=== PATIENT | female | born 1960 | race African-American/Black ===

== ENCOUNTER 2022-06-29 21:26 | Emergency (ER) | payer MEDICARE, MEDICAID, SELFPAY ==
--- NOTE | ~2022-06-29 | CT_ITS ---
EXAMINATION: CTA brain DATE: 06/30/2022 02:24 INDICATION: Dizziness. TECHNIQUE: Computed tomographic angiography (CTA) of the head was performed with 100 mL Omnipaque-350 intravenous contrast. Automated exposure control and iterative reconstruction technique were employe d. The dose-length product was 488.90 mGy-cm. Maximum intensity projection 3D reconstructions were c reated. Volume-rendered 3D reconstructions of the intracranial arteries were created by the technolog ist on a separate workstation. COMPARISON: Head CT 06/30/2022 FINDINGS: There is no intracranial hemorrhage, acute infarction, or abnormal intracranial mass lesion . The ventricles are normal in size. The orbits are normal. The mastoid air cells are normal. The par anasal sinuses are clear. The vertebral arteries are codominant. There is no significant stenosis of basilar artery or the posterior cerebral arteries. The posterior communicating arteries are normal. T here is no significant stenosis of the intracranial internal carotid arteries or anterior or middle c erebral arteries. Anterior communicating artery is normal. There is no aneurysm. IMPRESSION: 1. Normal brain. 2. No aneurysm or significant intracranial arterial stenosis. Reviewed, dictated and finalized at location A. NESS OFFICE SPECIALIST
--- NOTE | ~2022-06-29 | CT_ITS ---
EXAMINATION: CT brain wo con INDICATION: Dizziness and headache COMPARISON: None TECHNIQUE: Standard unenhanced head CT. The dose-length product (DLP) was 605.33 mGy-cm. The mA was a djusted according to patient size. Iterative reconstruction technique was employed. FINDINGS: There is no intracranial hemorrhage, acute infarction, or abnormal mass lesion. The ventric les are normal. There is no abnormal mass effect or midline shift. The daiz-white matter differentiat ion is normal. The basal cisterns are patent. The orbits are normal. The paranasal sinuses, mastoids and calvarium are normal. IMPRESSION: 1. No acute intracranial abnormality. Reviewed, dictated and finalized at location B. SAFETY MANAGER
--- NOTE | 2022-06-29 21:32 | ECG_ITS ---
Measurements Intervals [place] Rate: 80 P: 68 NM: 168 QRS: 32 QRSD: 76 T: 40 QT: 361 QTc: 419 Interpretive Statements SINUS RHYTHM LOW QRS VOLTAGE IN LIMB LEADS CANNOT RULE OUT SEPTAL INFARCT, AGE INDETERMINATE BASELINE ARTIFACT- II, AVR, AVF, V3-V6 ABNORMAL ECG NO PREVIOUS ECG AVAILABLE FOR COMPARISON Electronically Signed On 06-30-2022 6:49:40 GAGGERMAN by Manoj Schreiber D.O.
[2022-06-29 21:33] VITALS: BP 144/86; PULSE 85; RESP 14; TEMP 36.7; O2SAT 98
[2022-06-29 21:48] LABS: Basophils Absolute Auto 0.1 K/mm3 (0.0-0.1); Basophils Percent Auto 0.8 % (0.2-1.2); Eosinophils Absolute Auto 0.2 K/mm3 (0-0.3); Eosinophils Percent Auto 2.4 % (0-4.4); Hematocrit 41.3 % (37.0-47.0); Hemoglobin 13.7 g/dL (12.0-15.0); Immature Granulocyte Absolute 0.03 K/mm3 (0.00-0.031); Immature Granulocyte Percent A 0.4 % (0-0.5); Lymphocytes Absolute Auto 2.33 K/mm3 (0.9-3.2); Lymphocytes Percent Auto 29.9 % (18.3-44.2); Mean Corpuscular HGB Conc 33.2 g/dl (32-36); Mean Corpuscular Hemoglobin 32.5 pg (26-34); Mean Corpuscular Volume 98.1 fl (80-100); Mean Platelet Volume 9.6 fl (7.4-10.4); Monocytes Absolute Auto 0.4 K/mm3 (0.1-0.6); Monocytes Percent Auto 5.7 % (2.6-8.5); Neutrophils Absolute Auto 4.7 K/mm3 (1.3-6.7); Neutrophils Percent Auto 60.8 % (45.5-73.1); Platelet Count Result 206 k/mm3 (150-375); Red Blood Count 4.21 M/mm3 (4.2-5.4); Red Cell Distribution Width 13.6 % (11.5-14.5); White Blood Count 7.8 K/mm3 (4.5-10.0)
[2022-06-29 22:05] LABS: Alanine Aminotransferase 29 U/L (6-35); Albumin Level 4.4 g/dL (3.5-5.1); Alkaline Phosphatase 116 U/L (38-126); Anion Gap 11 mmol/L (8-16); Aspartate Amino Transferase 45 U/L (14-36); Bilirubin,Total 0.4 mg/dL (0.2-1.3); Blood Urea Nitrogen 7 mg/dL (7-17); Calcium 9.3 mg/dL (8.4-10.2); Carbon Dioxide 29 mmol/L (22-30); Chloride 104 mmol/L (98-107); Estimated CRCL calculation 58 ml/min; Estimated Glomerular Filt Rate > 60; Glucose 113 mg/dL (65-110); Potassium 3.5 mmol/L (3.4-5.0); Sodium 144 mmol/L (137-145)
[2022-06-29 23:50] VITALS: BP 136/76; PULSE 79; RESP 20; O2SAT 99
[2022-06-29 23:51] VITALS: BP 136/76; O2SAT 98
[2022-06-29 23:52] VITALS: O2SAT 99
--- NOTE | 2022-06-29 23:53 | ED.DIZZY ---
HPI - Dizziness General Chief Complaint: Dizziness <PRISCILA Jackman Last Filed: 06/30/22 03:11> Stated Complaint: dizziness <PRISCILA Jackman Last Filed: 06/30/22 03:11> Time Seen by Provider: 06/29/22 23:47 <PRISCILA Jackman Last Filed: 06/30/22 03:11> History of Present Illness HPI Narrative: Patient is a 61-year-old female with a history of M?ni?re's disease, COPD on 2 L nasal cannula, mitral valve prolapse, CAD here is for evaluation of dizziness. Patient states that she first felt dizzy at rest about 4 hours ago. Describes as a room spinning sensation, lasting 10 minutes at a time, and then resolved. Denies provocation with turning head or position changes. Patient took meclizine upon symptom onset and is currently not dizzy but currently reports a mild headache. She has been able to walk. no chest pain, shortness of breath, fevers or chills, ear pain, urinary symptoms, abdominal pain, nausea or vomiting. Has hx of menieres and has hearing loss on the left; states today feels different. <PRISCILA Jackman Last Filed: 06/30/22 03:11> Related Data Allergies/Adverse Reactions: Allergies Allergy/AdvReac Type Severity Reaction Status Date / Time No Known Allergies Allergy Verified 06/30/22 00:20 <PRISCILA Jackman Last Filed: 06/30/22 03:11> Review of Systems Review of Systems: Gen.: Denies fevers or chills Eyes: Denies eye pain or visual change ENT: Denies congestion Respiratory: Denies shortness of breath or cough CV: Denies chest pain or palpitations GI: Denies abdominal pain nausea, emesis or diarrhea denies burning, urgency, frequency or hematuria Musculoskeletal: Denies back pain or muscle pain Neuro: Reports dizziness. Denies numbness, tingling, weakness or focal weakness Skin: Denies rash Except as documented, all other systems reviewed and negative <PRISCILA Jackman Last Filed: 06/30/22 03:11> Exam Narrative: APPEARANCE: Well appearing, no pain in distress, well-nourished. Head: Normocephalic and atraumatic. EYES: Fatigable, horizontal nystagmus. PERRLA/EOMI, conjunctivae clear NOSE: No nasal drainage EARS: External ear normal in appearance THROAT: Oropharynx is clear. Mucous membranes are moist. NECK: Supple. No adenopathy, no masses. RESPIRATORY: Airway patent, respirations nonlabored. Clear to auscultation bilaterally, no rales, rhonchi, wheezing. CARDIOVASCULAR: Regular rate and rhythm without murmurs, rubs, or gallops. ABDOMINAL: Normoactive bowel sounds. Soft, nontender, nondistended. No rebound tenderness or guarding. MUSCULOSKELETAL: Extremities are warm and well-perfused. Moves all extremities well. No edema. NEURO: Ndjjwe-xo-tiqo normal. Cranial nerves II through XII intact. Normal speech. SKIN: Skin is warm and dry. No rashes. PSYCHIATRIC: Normal affect/mood.. <Shira Mast PA-C - Last Filed: 06/30/22 03:11> Course SCRAP BREAKER/PA Physician Supervision For this encounter, I have reviewed the mid-level provider documentation, treatment plan and medical decision making. I have had cdlq-xi-hubl time with the patient. . Physical exam revealed a woman who appears older than her stated age. Cranial nerves 2-12 grossly intact. Sensation light touch, motor function cerebellar function intact for 4 extremities. No nystagmus at rest. Negative test of skew. head impulse indeterminate. patient is having episodic dizziness but denies double vision, dysarthria, dysphagia or dystaxia. Patient has a history of Meniere's and currently has sinus congestion. Posterior circulation stroke was considered but I find it be less likely than a peripheral cause of vertigo given the patient's history and physical. Patient's condition improved with meclizine and scopolamine. Patient will be discharged. <Lance Farah MD - Last Filed: 06/30/22 04:53> Vital Signs Vital signs: Vital Signs
[2022-06-30] VITALS (18 sets, daily range): BP systolic 119–143; BP diastolic 67–93; PULSE 71–80; RESP 16; TEMP 36.3–36.7; O2SAT 95–100
[2022-06-30] MEDS: ACETAMINOPHEN 325 MG TABLET 650 MG PO (00:20)
[2022-06-30] MEDS: SODIUM CHLORIDE 0.9% IV 1,000 ML 999 ML IV CONT (01:09)
[2022-06-30] MEDS: MECLIZINE HCL 12.5 MG TABLET PO (01:10)
--- NOTE | 2022-06-30 03:14 | PC.NURSE ---
scopolamine patch not placed per ERP because dizziness has resolved.
[2022-06-30] MEDS: MECLIZINE HCL 25 MG TABLET PO (03:35)
== END 2022-06-30 03:24 | disposition home or self-care (01) ==
PROVIDERS: Family Medicine; Emergency Provider Emergency Medicine; PCP Hospitalist
DX: H81.09 Meniere's disease, unspecified ear (principal); J44.9 Chronic obstructive pulmonary disease, unspecified; I25.10 Atherosclerotic heart disease of native coronary artery without angina pectoris; I34.1 Nonrheumatic mitral (valve) prolapse; Z99.81 Dependence on supplemental oxygen; R94.31 Abnormal electrocardiogram [ECG] [EKG]
CPT/HCPCS: 36415; 70450; 70496; 80053; 85025; 93005; 96360; 99284; A9270; J7030; Q9967

== ENCOUNTER 2022-07-29 23:37 | Observation (INO) | payer MEDICARE, MEDICAID, SELFPAY ==
--- NOTE | ~2022-07-29 | US_ITS ---
EXAMINATION: US carotid duplex BI DATE: 07/30/2022 14:23 INDICATION: Dizziness. Severe vertigo. TECHNIQUE: Grayscale, color Doppler, and pulsed Doppler images of the cervical carotid arteries were obtained. The degree of vessel stenosis is placed in one of the following categories: normal, <50%, 5 0-69%, >=70% but less than near-occlusion, near-occlusion, or total occlusion. Note that percent sten osis relative to normal distal artery lumen diameter is indirectly measured from velocity measurement s as described by Segundo, et al. Radiology 2003; 229:340-346. Notes: Normal: Peak systolic velocity <125 centimeters/sec and no plaque <50%. Peak systolic velocity <125 ( EDV <40; ICA/CCA PSV ratio <2.0; used these factors only a tandem lesions or low cardiac output or co ntralateral disease) 50-69 %: PSV 125-230 (EDV 40-100; ratio 2-4) >= 70% but less than near occlusion: PSV greater than 230 (EDV > 100; ratio> 4.0) Near Occlusion: PSV that is variable; markedly narrowed lumen Occlusion: Absent flow on color/spectral Doppler and no lumen on diaz scale. COMPARISON: CTA brain dated 07/30/2022. FINDINGS: RIGHT: The right common carotid artery (CCA) peak systolic velocity (PSV) is 64 cm/s. The right internal car otid artery (ICA) PSV is 57 cm/s. The right ICA end-diastolic velocity (EDV) is 20 cm/s. The right IC A/CCA PSV ratio is 0.9. The external carotid artery (ECA) PSV is 60 cm/s. There is antegrade flow in the right vertebral artery. LEFT: The left CCA PSV is 62 cm/s. The left ICA PSV is 59 cm/s. The left ICA EDV is 22 cm/s. The left ICA/C CA PSV ratio is 0.9. The ECA PSV is 58 cm/s. There is antegrade flow in the left vertebral artery. IMPRESSION: 1. Less than 50% stenosis in the right internal carotid artery by sonographic criteria. 2. Less than 50% stenosis in the left internal carotid artery by sonographic criteria. Reviewed, dictated and finalized at location A. AVER TIRE MOLD IMPRESSION: 1. Less than 50% stenosis in the right internal carotid artery by sonographic julio bravo. 2. Less than 50% stenosis in the left internal carotid artery by sonographic lópez graves.
--- NOTE | ~2022-07-29 | CT_ITS ---
EXAMINATION: CT brain wo con DATE: 07/30/2022 10:03 INDICATION: Dizziness. TECHNIQUE: Computed tomography (CT) of the head was performed without intravenous contrast. The mA wa s adjusted according to patient size. Iterative reconstruction technique was employed. The dose-lengt h product was 605.33 mGy-cm. COMPARISON: Head CT 06/30/2022 FINDINGS: There is no intracranial hemorrhage, acute infarction, or abnormal intracranial mass lesion . The ventricles are normal in size. The orbits are normal. There is trace fluid in right maxillary s inus. The mastoid air cells are normal. IMPRESSION: 1. Normal brain. Reviewed, dictated and finalized at location E. [employer]ODUCTS MACHINE OPERATOR IMPRESSION: 1. Normal brain.
[2022-07-29 23:37] VITALS: BP 132/72; PULSE 83; RESP 16; TEMP 36.9; O2SAT 97
--- NOTE | 2022-07-29 23:42 | PC.NURSE ---
Gauze packing to right nostril from EMS, remains in place at this time.
[2022-07-29 23:51] VITALS: O2SAT 99
[2022-07-30] VITALS (29 sets, daily range): BP systolic 119–156; BP diastolic 65–85; PULSE 69–96; RESP 12–22; TEMP 35.9–36.6; O2SAT 94–98
--- NOTE | 2022-07-30 00:04 | ED.EPISTAXIS ---
HPI - Epistaxis General Chief complaint: Epistaxis <PRISCILA Jackman Last Filed: 07/30/22 02:08> Stated complaint: NOSE BLEED <PRISCILA Jackman Last Filed: 07/30/22 02:08> Time Seen by Provider: 07/29/22 23:50 <PRISCILA Jackman Last Filed: 07/30/22 02:08> History of Present Illness HPI Narrative: Patient is a 61-year-old female here for evaluation of nosebleed for the past 2 hours. Patient states that she was scratching the right nare and suddenly began to bleed from the area she scratched. States that she was unable to get the nosebleed controlled and decided to come to the ED. She chronically wears O2 due to COPD and was placed on nonrebreather mask due to nasal cannula irritating the nares. Takes aspirin but no other blood thinners. <PRISCILA Jackman Last Filed: 07/30/22 02:08> Related Data Allergies/adverse reactions: Allergies Allergy/AdvReac Type Severity Reaction Status Date / Time No Known Allergies Allergy Verified 06/30/22 00:20 <PRISCILA Jackman Last Filed: 07/30/22 02:08> Review of Systems Review of Systems: Gen: Denies fevers or chills Eyes: Denies eye pain or visual change ENT: Reports nosebleed. Denies congestion Respiratory: Denies shortness of breath or cough CV: Denies chest pain or palpitations GI: Denies abdominal pain nausea, emesis or diarrhea denies burning, urgency, frequency or hematuria Musculoskeletal: Denies back pain or muscle pain Neuro: Denies numbness, tingling, weakness or focal weakness Skin: Denies rash Except as documented, all other systems reviewed and negative <PRISCILA Jackman Last Filed: 07/30/22 02:08> Exam Narrative: APPEARANCE: Well appearing, no pain in distress, well-nourished. Head: Normocephalic and atraumatic. EYES: PERRLA/EOMI, conjunctivae clear NOSE: blood clot noted in right and left nare, no active bleeding EARS: External ear normal in appearance THROAT: Oropharynx is clear. Mucous membranes are moist. NECK: Supple. No adenopathy, no masses. RESPIRATORY: Airway patent, respirations nonlabored. Clear to auscultation bilaterally, no rales, rhonchi, wheezing. CARDIOVASCULAR: Regular rate and rhythm without murmurs, rubs, or gallops. ABDOMINAL: Normoactive bowel sounds. Soft, nontender, nondistended. No rebound tenderness or guarding. MUSCULOSKELETAL: Extremities are warm and well-perfused. Moves all extremities well. No edema. NEURO: Normal speech. No focal neurologic deficits. SKIN: Skin is warm and dry. No rashes. PSYCHIATRIC: Normal affect/mood. <Shira Mast PA-C - Last Filed: 07/30/22 02:08> Course HIGH SCHOOL SPORTS COACH/PA Physician Supervision For this encounter, I have reviewed the mid-level provider documentation, treatment plan and medical decision making. I have had ecdo-[id number] time with the patient. physical exam revealed a 61-year-old female with epistaxis. We are unable to control the bleeding with direct pressure/Afrin. no visible site of bleeding that we were able to cauterize. Eventually a rhino rocket was placed in the right nare which controlled the bleeding. However at this point patient had a recurrence of her chronic vertigo. She received meclizine, Benadryl, Reglan, a scopolamine patch and Valium without complete control of her symptoms. She is still walking with an unsteady gait is concerned she won't be able to make it up the stairs in her home.. Patient will be placed in observation for vertigo. <Lance Farah MD - Last Filed: 07/30/22 05:11> Vital Signs Vital signs: Vital Signs Temperature 98.5 F 07/29/22 23:37 Pulse Rate 83 07/29/22 23:37 Respiratory Rate 16 07/29/22 23:37 Blood Pressure 132/72 07/29/22 23:37 Pulse Oximetry 97 07/29/22 23:37 Oxygen Delivery Non-Rebreather Mask 07/29/22 23:37 Oxygen Flow Rate 8 07/29/22 23:37 Temperature 98.5 F 07/29/22 23:37 Pulse Rate 74 12/08/
[2022-07-30] MEDS: OXYMETAZOLINE HCL 0.05% NAS 15 ML BTL (*BKC) 1 SPRAY NASAL (00:20)
[2022-07-30 00:54] LABS: Hematocrit 42.9 % (37.0-47.0)
[2022-07-30] MEDS: MECLIZINE HCL 12.5 MG TABLET PO ×4 (01:39→21:04)
[2022-07-30] MEDS: LORazepam (*CRX) 0.5 MG TABLET 0.25 MG PO (02:04)
[2022-07-30] MEDS: diphenhydrAMINE HCl INJ 50 MG/ML VIAL 25 MG IV PUSH (02:43)
[2022-07-30] MEDS: METOCLOPRAMIDE HCL INJ 10 MG/2 ML VIAL IV PUSH (02:46)
[2022-07-30] MEDS: SCOPOLAMINE 1.5 MG PATCH TRANSDERM (03:16)
[2022-07-30] MEDS: diazePAM INJ (*CRX) 10 MG/2 ML SYRINGE 5 MG IV PUSH (04:00)
[2022-07-30 06:08] LABS: Influenza A QL RT-PCR Negative (Negative); Influenza B QL RT-PCR Negative (Negative); SARS-CoV-2 RNA PCR Negative
--- NOTE | 2022-07-30 07:51 | ADMGEN ---
This patient, Nannette Nj, was admitted to [facility] Surg Room 328-01. Patient/family oriented to hospital policies and general routines including ID bracelet, bed and alarms, visiting hours, pain management, procedures, bathroom and other care routines, personal items, smoking policy, room service/diet, and visiting hours. Information on how to activate the Rapid Response Team has been discussed. Patient/Family are encouraged to report perceived risks to care and to ask questions if they do not understand what they are told or what they should do.
--- NOTE | 2022-07-30 09:49 | PC.NURSE ---
to us per stretcher
[2022-07-30] MEDS: ONDANSETRON INJ 4 MG/2 ML VIAL IV PUSH (12:50)
[2022-07-30] MEDS: ACETAMINOPHEN 325 MG TABLET 650 MG PO (13:00)
--- NOTE | 2022-07-30 14:17 | PM.IMHP ---
H&P: HPI History of Present Illness Date/Time: 07/30/22 14:17 Chief Complaint: 61-year-old patient with a history of COPD, CAD, hypertension, Meniere's disease and GERD. Patient presents to the ED on 07/30/2022 due to epistaxis. Patient stated that she had been feeling dry and had picked at a spot on her nose and it started bleeding uncontrollably. Patient chronically wears O2 at home. ER unable to control bleeding with direct pressure/ Afrin. There was no visible site of bleeding that ER was able to cauterize, rhino rocket was placed in the right [place] in the bleeding was controlled. Patient then started having vertigo symptoms. Received meclizine, Benadryl, Reglan scopolamine patch and Valium in the ER without symptom control. Patient admitted to observation. Patient does have a history of chronic vertigo states that it has become increasingly more severe over the past year. Patient stated that she has been seen by urgent care just a couple days ago where they gave her meclizine. Meclizine has improved patient's symptoms in the past but did not while in the ER. Patient describes the vertigo as the room is spinning and feels as if she is falling backwards. She has associated nausea and the feeling of a full in her ear on left side. Patient is also hard of hearing in the left ear. Patient denies vomiting, loss of consciousness, falls, changes in vision; as well as chest pain, shortness a breath, diarrhea and fever. CT head and carotid Doppler ordered. CT head revealed no acute intracranial process. Carotid Doppler less than 50% stenosis bilaterally. Patient started on 2.5 meclizine q.i.d., 0.5 lorazepam q.6, and 4 mg Zofran q.6 p.r.n. PT evaluation ordered, Karsten-Hallpike maneuver requested. Review of Systems Review of Systems: All systems reviewed & are unremarkable except as noted in HPI and below PMFSH Past Medical History Medical History (Updated 07/30/22 @ 16:30 by Sadie Landaverde PA-C) COPD (chronic obstructive pulmonary disease) Coronary artery disease GERD (gastroesophageal reflux disease) Hypertension Family History Family History (Updated 07/30/22 @ 14:46 by Sadie Landaverde PA-C) Mother Carcinoma of colon Grandparent Carcinoma of colon Father Heart disease Social History Social History (Updated 07/30/22 @ 14:46 by Sadie Landaverde PA-C) Social History: Patiently currently lives alone in an apartment no pets. She quit smoking in 2017 with history of a half a pack a day for 30 years smoking history. Smoking status: Former smoker Tobacco type: cigarettes Alcohol intake: never Substance use: never Substance use type: does not use Lack of Transportation: YES Lack of Food: Never True Current Housing: I Have Housing Concerned About Future Housing: No Difficulty Paying Gas/Electric Bills: YES Difficulty Paying for Meds: No Currently Unemployed: No Education: Don't Know Difficulty w/ Childcare or Family Care: No Spiritual care concerns: No Meds Home Medications and Allergies Home Medications Medication Instructions Recorded Confirmed Type meclizine 25 mg tablet 25 mg PO BID PRN dizziness #14 tabs 06/30/22 07/30/22 Rx albuterol sulfate 90 mcg/actuation 90 mcg inhalation PRN 07/30/22 07/30/22 History aerosol inhaler aspirin 81 mg chewable tablet 81 mg PO DAILY 07/30/22 07/30/22 History atorvastatin 40 mg tablet 40 mg PO DAILY 07/30/22 07/30/22 History budesonide-formoterol HFA 80 4.5 inh inhalation BID 07/30/22 07/30/22 History mcg-4.5 mcg/actuation aerosol inhaler (Symbicort) fluticasone propionate 50 50 mcg intranasal DAILY 07/30/22 07/30/22 History mcg/actuation nasal spray,suspension ipratropium 0.5 mg-albuterol 3 mg 3 ml inhalation TID 07/30/22 07/30/22 History (2.5 mg base)/3 mL nebulization soln isosorbide mononitrate 30 mg 30 mg PO DAILY 07/30/22 07/30/22 History tablet,extended release 24 hr metoprolol succinate 25 mg 2
[2022-07-30 14:52] LABS: Hemoglobin 12.7 g/dL (12.0-15.0); Mean Corpuscular HGB Conc 33.4 g/dl (32-36); Mean Corpuscular Hemoglobin 33.5 pg (26-34); Mean Corpuscular Volume 100.3 fl (80-100); Mean Platelet Volume 9.3 fl (7.4-10.4); Platelet Count Result 183 k/mm3 (150-375); Red Blood Count 3.79 M/mm3 (4.2-5.4); Red Cell Distribution Width 13.7 % (11.5-14.5); White Blood Count 9.5 K/mm3 (4.5-10.0)
[2022-07-30 15:02] LABS: Anion Gap 5 mmol/L (8-16); Blood Urea Nitrogen 8 mg/dL (7-17); Calcium 8.8 mg/dL (8.4-10.2); Carbon Dioxide 33 mmol/L (22-30); Chloride 99 mmol/L (98-107); Estimated CRCL calculation 88 ml/min; Estimated Glomerular Filt Rate > 60; Glucose 136 mg/dL (65-110); Potassium 3.1 mmol/L (3.4-5.0); Sodium 137 mmol/L (137-145)
[2022-07-30] MEDS: POTASSIUM CHLORIDE 20 MEQ PACKET (FOR LIQUID) 60 MEQ PO (16:41)
[2022-07-30] MEDS: AMOXICILLIN/CLAVULANATE K 875-125 MG TAB 1 TABLET PO (16:42)
[2022-07-30] MEDS: LORazepam (*CRX) 0.5 MG TABLET PO (17:05)
[2022-07-30] MEDS: IPRATROPIUM BR 0.02% INH SOLN 0.5 MG/2.5 ML VIAL INHALATION (21:01)
[2022-07-30] MEDS: FLUTICASONE/SALMETEROL 45-21 MCG INHALER 1 PUFF 2 PUFF INHALATION (21:02)
[2022-07-30] MEDS: ALBUTEROL SULFATE NEB 2.5 MG/3 ML INH INHALATION (21:02)
[2022-07-31] VITALS (10 sets, daily range): BP systolic 95–104; BP diastolic 54–64; PULSE 77–100; RESP 14–20; TEMP 35.3–36.7; O2SAT 92–94
[2022-07-31] MEDS: AMOXICILLIN/CLAVULANATE K 875-125 MG TAB 1 TABLET PO ×2 (06:00→17:24)
[2022-07-31 07:04] LABS: Hematocrit 40.6 % (37.0-47.0); Hemoglobin 13.3 g/dL (12.0-15.0); Mean Corpuscular HGB Conc 32.8 g/dl (32-36); Mean Corpuscular Hemoglobin 33.3 pg (26-34); Mean Corpuscular Volume 101.5 fl (80-100); Mean Platelet Volume 9.4 fl (7.4-10.4); Platelet Count Result 192 k/mm3 (150-375); Red Cell Distribution Width 14.1 % (11.5-14.5); White Blood Count 7.6 K/mm3 (4.5-10.0)
[2022-07-31 07:18] LABS: Alanine Aminotransferase 21 U/L (6-35); Albumin Level 4.1 g/dL (3.5-5.1); Alkaline Phosphatase 74 U/L (38-126); Anion Gap 6 mmol/L (8-16); Aspartate Amino Transferase 26 U/L (14-36); Blood Urea Nitrogen 8 mg/dL (7-17); Calcium 8.9 mg/dL (8.4-10.2); Carbon Dioxide 30 mmol/L (22-30); Chloride 101 mmol/L (98-107); Estimated CRCL calculation 68 ml/min; Estimated Glomerular Filt Rate > 60; Glucose 93 mg/dL (65-110); Potassium 3.8 mmol/L (3.4-5.0); Sodium 137 mmol/L (137-145)
--- NOTE | 2022-07-31 09:00 | PM.IMPN ---
Progress Note: A&P Assessment and Plan (1) Vertigo: Code(s): R42 - Dizziness and giddiness Status: Acute Assessment and Plan: Patient has a history of Meniere's disease and states she was diagnosed couple years ago. ENT consulted Rhino rockana luisa in placed from ER on 07/30/2022 Augmentin prescribed for toxic shock prophylaxis CT head no intracranial process Ultrasound of the carotids less than 50% stenosis bilaterally Meclizine 12.5 mg q.i.d. Lorazepam 0.5 Q 6 p.r.n. Zofran 4 mg q.6 p.r.n. PT evaluation [place]-Hallpike maneuver preformed due to hx of Mineires disease CBC and CMP ordered regular diet Plan to discharge patient tomorrow pending labs and severity of vertigo. (2) Epistaxis: Code(s): R04.0 - Epistaxis Status: Acute Assessment and Plan: Rhino rocket in place Augmentin 875 mg q12 started ENT consulted and appreciate their input and recommendations. ENT recommended follow-up as outpatient in 3-5 days. (3) COPD (chronic obstructive pulmonary disease): Code(s): J44.9 - Chronic obstructive pulmonary disease, unspecified Status: Acute Assessment and Plan: Continue home inhalers/nebulizers and meds (4) Hypertension: Code(s): I10 - Essential (primary) hypertension Status: Acute Assessment and Plan: Continue the metoprolol l (5) GERD (gastroesophageal reflux disease): Code(s): K21.9 - Gastro-esophageal reflux disease without esophagitis Status: Acute Assessment and Plan: Continue omeprazole (6) Coronary artery disease: Code(s): I25.10 - Atherosclerotic heart disease of [place] coronary artery without angina pectoris Status: Acute Assessment and Plan: Continue atorvastatin (7) Hypokalemia: Code(s): E87.6 - Hypokalemia Status: Acute Assessment and Plan: Potassium 3.1 and pt give 60 meq of potassium recheck in the am (8) Meniere disease: Code(s): H81.09 - Meniere's disease, unspecified ear Status: Acute Assessment and Plan: Diagnosed a couple years ago not on chronic medication see above for tx Subjective Date/time seen: 07/31/22 09:00 Interval history: 61-year-old with a history of Meniere's disease, coronary artery disease, COPD and hypertension. Patient states that vertigo had resolved yesterday but she is still a little unsteady on her feet due to weakness. Patient does state that she has tinnitus in her ear that is associated with vertigo. Patient denies shortness of breath, nausea, vomiting, chest pain and fever. Answered all patient's questions Review of Systems Review of Systems: All systems reviewed & are unremarkable except as noted in HPI and below Exam Narrative: GENERAL: Comfortable, acute distress HENMT: moist mucous membranes, no nystagmus, ears clear light reflex present EYES: EOM intact b/l, no nystagmus NECK: no lymphadenopathy RESPIRATORY: clear to auscultation CARDIO: RRR GI: soft, nontender, bowel sounds present SKIN: no rashes EXTREMITIES: no edema, redness or tenderness Objective Data Vital Signs Vital Signs: Vital Signs - 24 hr 07/30/22 13:41 07/30/22 13:49 07/30/22 13:51 Temperature 97.2 F L Pulse Rate 69 Respiratory Rate 16 Blood Pressure 122/65 152/83 H 138/77 Pulse Oximetry 95 Oxygen Delivery Oxygen Flow Rate 07/30/22 21:00 07/30/22 21:09 07/30/22 22:24 Temperature Pulse Rate 96 92 Respiratory Rate 20 20 Blood Pressure Pulse Oximetry 95 Oxygen Delivery Nasal Cannula Oxygen Flow Rate 2 07/30/22 22:00 07/31/22 06:00 Temperature 97.9 F 95.6 F L Pulse Rate 77 77 Respiratory Rate 16 14 Blood Pressure 142/70 H 101/64 Pulse Oximetry 95 92 Oxygen Delivery Oxygen Flow Rate Intake/Output Intake/Output: Intake & Output 07/28/22 07/29/22 07/30/22 07/31/22 23:59 23:59 23:59 23:59 Intake Total 910 200 Output Total 200 Balance 710 200
[2022-07-31] MEDS: FLUTICASONE/SALMETEROL 45-21 MCG INHALER 1 PUFF 2 PUFF INHALATION ×2 (10:20→22:03)
[2022-07-31] MEDS: IPRATROPIUM BR 0.02% INH SOLN 0.5 MG/2.5 ML VIAL INHALATION ×3 (10:20→22:02)
[2022-07-31] MEDS: ALBUTEROL SULFATE NEB 2.5 MG/3 ML INH INHALATION ×3 (10:20→22:03)
[2022-07-31] MEDS: MECLIZINE HCL 12.5 MG TABLET PO ×4 (10:42→21:36)
[2022-07-31] MEDS: ACETAMINOPHEN 325 MG TABLET 650 MG PO (10:42)
[2022-07-31] MEDS: FLUTICASONE PROPIONATE 0.05% NA SPR 16 GM BTL (*BKC) 1 SPRAY NASAL (10:42)
[2022-07-31] MEDS: ENOXAPARIN 40 MG/0.4 ML SYRINGE SUB-Q (10:43)
[2022-07-31] MEDS: ASPIRIN 81 MG CHEWABLE TABLET PO (10:51)
[2022-07-31] MEDS: PANTOPRAZOLE 40 MG TABLET PO (10:52)
[2022-07-31] MEDS: ATORVASTATIN 40 MG TABLET PO (10:52)
[2022-07-31] MEDS: METOPROLOL SUCCINATE EXT REL 25 MG TABCR PO (10:52)
[2022-07-31] MEDS: ISOSORBIDE MONONITRATE 30 MG TAB.ER.24H PO (10:52)
[2022-07-31] MEDS: UMECLIDINIUM BROMIDE 62.5 MCG ELLIPTA 1 PUFF INHALATION (15:24)
--- NOTE | 2022-07-31 19:47 | PC.NURSE ---
Rhino-rocket continues to be in patient's right nare. Provider notified about clarification of continuation. ENT consulted.
--- NOTE | 2022-07-31 22:06 | WPDPROCEDUR ---
Procedures Epistaxis Control Time out performed: Yes Nostril: right Direct inspection: yes Patient tolerated procedure: well Epistaxis Comment: Rhino rocket bold deflated and removed rhino rocket per patient's request. The patient stated that she was uncomfortable and could not breathe. The patient requested that the rhino rocket be removed. The rhino rocket was successfully removed. No further bleeding noted at this time.
[2022-08-01] MEDS: AMOXICILLIN/CLAVULANATE K 875-125 MG TAB 1 TABLET PO (05:44)
[2022-08-01 06:00] VITALS: BP 106/53; PULSE 80; RESP 16; TEMP 36.8; O2SAT 96
[2022-08-01 08:40] LABS: Hematocrit 38.3 % (37.0-47.0); Hemoglobin 12.3 g/dL (12.0-15.0); Mean Corpuscular HGB Conc 32.1 g/dl (32-36); Mean Corpuscular Hemoglobin 32.8 pg (26-34); Mean Corpuscular Volume 102.1 fl (80-100); Mean Platelet Volume 9.6 fl (7.4-10.4); Platelet Count Result 184 k/mm3 (150-375); Red Blood Count 3.75 M/mm3 (4.2-5.4); Red Cell Distribution Width 14.2 % (11.5-14.5); White Blood Count 6.9 K/mm3 (4.5-10.0)
[2022-08-01 08:56] LABS: Anion Gap 6 mmol/L (8-16); Blood Urea Nitrogen 9 mg/dL (7-17); Calcium 8.6 mg/dL (8.4-10.2); Carbon Dioxide 32 mmol/L (22-30); Chloride 101 mmol/L (98-107); Estimated CRCL calculation 77 ml/min; Estimated Glomerular Filt Rate > 60; Glucose 101 mg/dL (65-110); Potassium 3.9 mmol/L (3.4-5.0); Sodium 139 mmol/L (137-145)
[2022-08-01] MEDS: ASPIRIN 81 MG CHEWABLE TABLET PO (09:20)
[2022-08-01] MEDS: MECLIZINE HCL 12.5 MG TABLET PO ×2 (09:20→11:44)
[2022-08-01] MEDS: ENOXAPARIN 40 MG/0.4 ML SYRINGE SUB-Q (09:20)
[2022-08-01] MEDS: FLUTICASONE PROPIONATE 0.05% NA SPR 16 GM BTL (*BKC) 1 SPRAY NASAL (09:21)
[2022-08-01] MEDS: METOPROLOL SUCCINATE EXT REL 25 MG TABCR PO (09:21)
[2022-08-01] MEDS: PANTOPRAZOLE 40 MG TABLET PO (09:21)
[2022-08-01] MEDS: ATORVASTATIN 40 MG TABLET PO (09:21)
[2022-08-01] MEDS: ISOSORBIDE MONONITRATE 30 MG TAB.ER.24H PO (09:21)
[2022-08-01 09:40] VITALS: PULSE 84; RESP 16
[2022-08-01 09:50] VITALS: PULSE 84; RESP 16
[2022-08-01] MEDS: ALBUTEROL SULFATE NEB 2.5 MG/3 ML INH INHALATION (09:53)
[2022-08-01] MEDS: IPRATROPIUM BR 0.02% INH SOLN 0.5 MG/2.5 ML VIAL INHALATION (09:53)
[2022-08-01] MEDS: UMECLIDINIUM BROMIDE 62.5 MCG ELLIPTA 1 PUFF INHALATION (09:54)
[2022-08-01] MEDS: FLUTICASONE/SALMETEROL 45-21 MCG INHALER 1 PUFF 2 PUFF INHALATION (09:56)
--- NOTE | 2022-08-01 12:58 | PM.DS ---
DS: Admitting Diagnosis Discharge Date 08/01/2022 Admitting Diagnosis Vertigo DS: Discharge Diagnosis Discharge Diagnosis (1) Vertigo: Code(s): R42 - Dizziness and giddiness Status: Acute (2) Epistaxis: Code(s): R04.0 - Epistaxis Status: Acute (3) COPD (chronic obstructive pulmonary disease): Code(s): J44.9 - Chronic obstructive pulmonary disease, unspecified Status: Acute (4) Hypertension: Code(s): I10 - Essential (primary) hypertension Status: Acute (5) GERD (gastroesophageal reflux disease): Code(s): K21.9 - Gastro-esophageal reflux disease without esophagitis Status: Acute (6) Coronary artery disease: Code(s): I25.10 - Atherosclerotic heart disease of [place] coronary artery without angina pectoris Status: Acute (7) Hypokalemia: Code(s): E87.6 - Hypokalemia Status: Acute (8) Meniere disease: Code(s): H81.09 - Meniere's disease, unspecified ear Status: Acute DS: Summary Hospital Course Reason for hospitalization: Vertigo Hospital Course: 61-year-old female with a history of Meniere's disease, coronary artery disease, COPD and hypertension. Patient presented to the ED on 07/30/2022 due to epistaxis. Patient stated that she had been feeling dry and had picked at a spot on her nose and it started bleeding uncontrollably.? Patient chronically wears O2 at home.? ER unable to control bleeding with direct pressure/ Afrin.? There was no visible site of bleeding that ER was able to cauterize, rhino rocket was placed in the right nare in the bleeding was controlled.? Patient then started having vertigo symptoms.? Received meclizine, Benadryl, Reglan scopolamine patch and Valium in the ER without symptom control.? Patient admitted to observation.? Patient does have a history of chronic vertigo with her Meniere's disease and states that it has become increasingly more severe over the past year. Patient describes the vertigo as the room is spinning and feels as if she is falling backwards.? She has associated nausea and the feeling of a full in her ear on left side.? Patient does have a history of tinnitus associated with her vertigo. CT head and carotid Doppler ordered.? CT head revealed no acute intracranial process.? Carotid Doppler less than 50% stenosis bilaterally.? Patient started on 2.5 meclizine q.i.d., 0.5 lorazepam q.6, and 4 mg Zofran q.6 p.r.n. PT evaluation ordered. Patient's vertigo resolved on 07/30/2022. ENT consulted due to Meniere's disease and rhino rocket being placed in patient's right nare. Patient started on Augmentin for toxic shock prophylaxis. Patient has rhino rocket removed on 07/31/2022 at night. Discharging patient on meclizine and Augmentin and advised to follow-up with ENT regarding epistaxis and Meniere's disease. Time Spent with Patient Time attestation: Total time spent providing and/or coordinating discharge services: Exam Narrative: GENERAL: Comfortable, no acute distress HENMT: moist mucous membranes EYES: EOM intact b/l, no nystagmus NECK: no lymphadenopathy RESPIRATORY: clear to auscultation CARDIO: RRR GI: soft, nontender, bowel sounds present SKIN: no rashes EXTREMITIES: no edema, redness or tenderness DS: Data Data Completed and Pending Labs on day of discharge: Labs from last 24 hours 08/01/22 08/01/22 07:54 07:54 WBC 6.9 RBC 3.75 L Hgb 12.3 Hct 38.3 MCV 102.1 H MCH 32.8 MCHC 32.1 RDW 14.2 Plt Count 184 MPV 9.6 Sodium 139 Potassium 3.9 Chloride 101 Carbon Dioxide 32 H Anion Gap 6 L BUN 9 Creatinine 0.70 Estim Creat Clear Calc 77 Estimated GFR > 60 Glucose 101 Calcium 8.6 Discharge Plan Discharge Attending physician on discharge: Afshin Hernandez Consulting providers: Shira Mast ; John Brown Discharging Clinician: Sadie Landaverde Anticipated Discharge Date/Time: 08/01/22 15:00
== END 2022-08-01 15:00 | disposition home or self-care (01) ==
LOC: ANHED 07-30 05:09 → ANH3MEDSUR 07-30 11:14
PROVIDERS: Internal Medicine Critical Care Medicine; Physician Assistant; Admitting Provider Internal Medicine; Emergency Provider Emergency Medicine; PCP Hospitalist; Visit Provider Internal Medicine
DX: R42 Dizziness and giddiness (principal); R04.0 Epistaxis; J44.9 Chronic obstructive pulmonary disease, unspecified; I10 Essential (primary) hypertension; K21.9 Gastro-esophageal reflux disease without esophagitis; E87.6 Hypokalemia; I25.10 Atherosclerotic heart disease of native coronary artery without angina pectoris; Z20.822 Contact with and (suspected) exposure to COVID-19; R26.81 Unsteadiness on feet; Z99.81 Dependence on supplemental oxygen; Z87.891 Personal history of nicotine dependence; Z79.51 Long term (current) use of inhaled steroids; Z79.82 Long term (current) use of aspirin; Z79.899 Other long term (current) drug therapy
CPT/HCPCS: 30901; 36415; 70450; 80048; 80053; 85014; 85018; 85027; 85610; 85730; 87636; 93880; 94640; 96372; 96374; 96375; 97161; 99285; A9270; G0378; J1200; J1650; J2405; J2765; J3360

== ENCOUNTER → 2023-02-25 15:41 | Outpatient (CLI) | payer MEDICARE, MEDICAID, SELFPAY ==
--- NOTE | ~2023-02-25 | CT_ITS ---
EXAMINATION: CT sinus wo con DATE: 02/25/2023 16:15 INDICATION: Chronic sinusitis TECHNIQUE: Computed tomography (CT) of the paranasal sinuses was performed without contrast. Iterativ e reconstruction technique was employed. Exam dose: 274.70 mGy-cm total exam DLP. COMPARISON: None FINDINGS: The paranasal sinuses and mastoid air cells are normally developed and aerated bilaterally. The ostiomeatal units are patent bilaterally. Midline nasal septum. Intralamellar cell of right middle nasal turbinate. There is moderate soft tissue swelling of the lef t middle and inferior nasal turbinates compared to the right side. Incidentally noted is a periapical abscess of the most posterior left upper molar. IMPRESSION: Midline nasal septum Moderate asymmetric soft tissue swelling of the left middle and inferior nasal turbinates Intralamellar cell of right middle nasal turbinate Patent bilateral ostiomeatal units, paranasal sinuses and mastoid air cells Periapical abscess of most posterior left upper molar Reviewed, dictated and finalized at [facility]. Reviewed, dictated and finalized at [facility].
== END ==
PROVIDERS: PCP Hospitalist; Visit Provider Otolaryngology
DX: J32.9 Chronic sinusitis, unspecified (principal); R93.0 Abnormal findings on diagnostic imaging of skull and head, not elsewhere classified
CPT/HCPCS: 70486

== ENCOUNTER 2024-02-03 12:31 | Emergency (ER) | payer MEDICARE, MEDICAID, SELFPAY ==
--- NOTE | ~2024-02-03 | XR_ITS ---
EXAMINATION: XR chest 2V 02/03/2024 13:22 INDICATION: Shortness of breath. History of coronary artery disease. PROCEDURE: 2 view chest COMPARISON: No prior studies for comparison. FINDINGS: The lungs are clear. There is left basilar atelectasis. The cardiomediastinal silhouette is within normal limits. There are no pleural effusions. There is no pneumothorax suspected. The ry gs are hyperinflated which is consistent with, but not diagnostic of chronic obstructive pulmonary di sease. IMPRESSION: 1: Left basilar atelectasis. Reviewed, dictated and finalized at [facility].
[2024-02-03 12:32] VITALS: PULSE 72
--- NOTE | 2024-02-03 12:35 | ECG_ITS ---
Test Date: 2024-02-03 12:42:56 Measurements Intervals Rogers Rate: 93 P: -17 GA: 156 QRS: 6 QRSD: 75 T: -22 QT: 367 QTc: 456 Interpretive Statements SINUS RHYTHM WITH FREQUENT VENTRICULAR PREMATURE COMPLEXES MINIMAL ST DEPRESSION [0.025+ mV ST DEPRESSION] ABNORMAL RHYTHM ECG No previous ECG available for comparison Electronically Signed On 02-03-2024 12:47:53 CDT by Willis Mccloud M.D.
[2024-02-03 12:36] VITALS: BP 124/76; PULSE 93; RESP 18; TEMP 36.6; O2SAT 90
[2024-02-03 13:03] LABS: Basophils Absolute Auto 0.1 K/mm3 (0.0-0.1); Basophils Percent Auto 1.1 % (0.2-1.2); Eosinophils Absolute Auto 0.2 K/mm3 (0-0.3); Eosinophils Percent Auto 3.6 % (0-4.4); Hematocrit 40.2 % (37.0-47.0); Hemoglobin 12.9 g/dL (12.0-15.0); Immature Granulocyte Absolute 0.01 K/mm3 (0.00-0.031); Immature Granulocyte Percent A 0.2 % (0-0.5); Lymphocytes Absolute Auto 2.13 K/mm3 (0.9-3.2); Lymphocytes Percent Auto 45.6 % (18.3-44.2); Mean Corpuscular HGB Conc 32.1 g/dl (32-36); Mean Corpuscular Hemoglobin 31.8 pg (26-34); Mean Platelet Volume 10.4 fl (7.4-10.4); Monocytes Absolute Auto 0.3 K/mm3 (0.1-0.6); Monocytes Percent Auto 5.6 % (2.6-8.5); Neutrophils Absolute Auto 2.1 K/mm3 (1.3-6.7); Neutrophils Percent Auto 43.9 % (45.5-73.1); Platelet Count Result 192 k/mm3 (150-375); Red Blood Count 4.06 M/mm3 (4.2-5.4); Red Cell Distribution Width 14.1 % (11.5-14.5); White Blood Count 4.7 K/mm3 (4.5-10.0)
[2024-02-03 13:18] LABS: Alanine Aminotransferase 23 U/L (6-35); Albumin Level 4.2 g/dL (3.5-5.1); Alkaline Phosphatase 100 U/L (38-126); Anion Gap 7 mmol/L (4-12); Aspartate Amino Transferase 30 U/L (14-36); Bilirubin,Total 0.7 mg/dL (0.2-1.3); Blood Urea Nitrogen 5 mg/dL (7-17); Calcium 9.4 mg/dL (8.4-10.2); Carbon Dioxide 28 mmol/L (22-30); Chloride 107 mmol/L (98-107); Estimated CRCL calculation 77 ml/min; Estimated Glomerular Filt Rate > 60; Glucose 118 mg/dL (65-110); Potassium 3.9 mmol/L (3.4-5.0); Sodium 142 mmol/L (137-145)
--- NOTE | 2024-02-03 13:58 | ED.SOB ---
HPI - SOB/Dyspnea General Chief Complaint: Shortness of Breath/Dyspnea Stated Complaint: sob Time Seen by Provider: 02/03/24 13:23 Source: patient Mode of arrival: EMS Limitations: no limitations History of Present Illness HPI Narrative: 63-year-old with a history of COPD on 2 L of home oxygen use, with the complaints of shortness of breath. Patient states that for past 1 or 2 days he feels short of breath. She denies any cough. No history of fever or chills. She does have a nebulizer at home. Patient upon arrival to the ER she is feeling slightly better. MD elicited complaint: shortness of breath Pertinent past history: COPD Onset (ago): day(s) (2) Timing: intermittent Severity: moderate Exacerbating factors: movement Relieving factors: oxygen Known history of: COPD Associated symptoms: denies other symptoms Related Data Home oxygen amount: 2 liters Home Medications Medication Instructions Recorded Confirmed albuterol sulfate 90 mcg/actuation 90 mcg inhalation PRN 07/30/22 07/30/22 aerosol inhaler aspirin 81 mg chewable tablet 81 mg PO DAILY 07/30/22 07/30/22 atorvastatin 40 mg tablet 40 mg PO DAILY 07/30/22 07/30/22 budesonide-formoterol HFA 80 4.5 inh inhalation BID 07/30/22 07/30/22 mcg-4.5 mcg/actuation aerosol inhaler (Symbicort) fluticasone propionate 50 50 mcg intranasal DAILY 07/30/22 07/30/22 mcg/actuation nasal spray,suspension ipratropium 0.5 mg-albuterol 3 mg 3 ml inhalation TID 07/30/22 07/30/22 (2.5 mg base)/3 mL nebulization soln isosorbide mononitrate 30 mg 30 mg PO DAILY 07/30/22 07/30/22 tablet,extended release 24 hr metoprolol succinate 25 mg 25 mg PO DAILY 07/30/22 07/30/22 tablet,extended release 24 hr omeprazole 20 mg capsule,delayed 20 mg PO DAILY 07/30/22 07/30/22 release tiotropium bromide 18 mcg capsule 18 mcg inhalation DAILY 07/30/22 07/30/22 with inhalation device (Spiriva with HandiHaler) Allergies Allergy/AdvReac Type Severity Reaction Status Date / Time No Known Allergies Allergy Verified 07/30/22 07:51 Review of Systems Review of Systems: All systems reviewed & are unremarkable except as noted in HPI and below Constitutional: Constitutional: Reports no additional constitutional complaints Eyes: Eyes: Reports no additional eye complaints ENT: Reports system reviewed and no additional complaints, except as documented Cardiovascular: Cardiovascular: Reports no additional cardiovascular complaints Respiratory: Respiratory: Reports as per HPI Musculoskeletal: Musculoskeletal: Reports no additional musculoskeletal complaints Integumentary/Breasts: Skin/Breast: Reports system reviewed and no additional complaints, except as docu Neurologic: Reports system reviewed and no additional complaints, except as documented Endocrine: Endocrine: Reports no additional endocrine complaints [facility] Past Medical History Medical History (Updated 02/03/24 @ 14:14 by Jorge Arriola MD) COPD (chronic obstructive pulmonary disease) Coronary artery disease GERD (gastroesophageal reflux disease) Hypertension Family History Family History (Updated 07/30/22 @ 14:46 by Sadie Landaverde PA-C) Mother Carcinoma of colon Grandparent Carcinoma of colon Father Heart disease Social History Social History (Updated 07/30/22 @ 14:46 by Sadie Landaverde PA-C) Social History: Patiently currently lives alone in an apartment no pets. She quit smoking in 2017 with history of a half a pack a day for 30 years smoking history. Smoking status: Former smoker Tobacco type: cigarettes Alcohol intake: never Substance use: never Substance use type: does not use Lack of Transportation: YES Lack of Food: Never True Current Housing: I Have Housing Concerned About Future Housing: No Difficulty Paying Gas/Electric Bills: YES Difficulty Paying for Meds: No Currently Unemployed: No Education: Don't Know Difficulty w/ Childcare or Famil
[2024-02-03 14:09] VITALS: BP 112/76; PULSE 74; RESP 13; O2SAT 95
[2024-02-03 14:13] VITALS: O2SAT 99
== END 2024-02-03 15:04 | disposition home or self-care (01) ==
PROVIDERS: Emergency Provider Family Medicine; PCP Hospitalist
DX: J44.9 Chronic obstructive pulmonary disease, unspecified (principal); I25.10 Atherosclerotic heart disease of native coronary artery without angina pectoris; I10 Essential (primary) hypertension; K21.9 Gastro-esophageal reflux disease without esophagitis; Z87.891 Personal history of nicotine dependence; Z79.82 Long term (current) use of aspirin; Z79.899 Other long term (current) drug therapy; I49.3 Ventricular premature depolarization
CPT/HCPCS: 36415; 71046; 80053; 85025; 93005; 99284